=== PATIENT | male | born 1940 | race Caucasian/White ===

== ENCOUNTER → 2017-03-21 | Outpatient (CLI) | payer OTHER, MEDICARE | LOC: MRI 09:16 | DX: G54.2 Cervical root disorders, not elsewhere classified (principal); M25.511 Pain in right shoulder ==

== ENCOUNTER 2017-04-22 06:33 | Day surgery (SDC) | payer OTHER, MEDICARE ==
[~2017-04-22] VITALS: Ht 182.9 cm; Wt 86.2 kg
--- NOTE | ~2017-04-22 | O ---
[facility] [place] [address] OPERATIVE REPORT Name: MICHAEL PUCKETT Room #: 150-8 [facility]..#: [id number] Admission: 04/22/17 Attend Phys: Delvin Sinclair MD Discharge: Date of : 42 Report #: [id number] THIS REPORT FOR: //name// CC: Michael Ibrahim DO Delvin Sinclair DATE OF SERVICE: 04/22/2017 SURGEON: Delvin Sinclair MD PERSONAL CARE HOME ADMINISTRATOR: None. PREOPERATIVE DIAGNOSIS: Bilateral lower lid ectropion. POSTOPERATIVE DIAGNOSIS: Bilateral lower lid ectropion. OPERATION PERFORMED: Bilateral lower lid ectropion repair. ANESTHESIA: Local with IV sedation. COMPLICATIONS: None. INDICATIONS FOR PROCEDURE: This patient has bilateral acquired lower lid ectropion with chronic tearing and discharge. The current procedures are undertaken in order to improve the patient's visual function, lacrimal outflow, and level of comfort. Informed consent was obtained to include but not limit to the risk of loss of vision, bleeding, infection, scarring, failure to improve the problem and need for further surgery. DESCRIPTION OF OPERATION: The patient was taken to the operating room where 2% Xylocaine with epinephrine mixed with equal parts of 0.75% Marcaine with Wydase was administered transcutaneously and transconjunctivally to each lower lid and lateral canthal area. The patient was then prepped and draped in the usual sterile fashion. A Victor Manuel clamp was then used to clamp the left lateral canthus following which a sharp canthotomy and cantholysis were performed. The tarsal strip was prepared laterally, removing the lash bearing portion of the redundant lid margin and the redundant tarsal plate. Hemostasis was achieved with a monopolar cautery, as it was throughout the case. The tarsal strip was then secured to the internal portion of the lateral orbital tubercle with two interrupted 5-0 Prolene sutures. The lateral canthal angle was sharply reformed as the subcutaneous structures and the skin were closed with multiple interrupted 6-0 plain gut sutures. Attention was then turned to the right side where the same procedure was performed. The wounds were cleaned and dressed with ophthalmic antibiotic [address] [address] OPERATIVE REPORT Name: DARINMICHAEL CABRERA Room #: 150-8 [facility].#: [id number] Admission: 04/22/17 Attend Phys: Delvin Sinclair MD Discharge: Date of : 42 Report #: [id number] ointment. The patient was then transported to the recovery area, having tolerated the procedure well with no anesthetic or operative complications being noted. By: [id number] Delvin Sinclair MD /nt
[~2017-04-22 06:33] MED LIST: ALTACE10 MG PO; APAP650 PO; BETA PROSTATE PO; CENTRUM SILVER1 EAC5 PO; COREG6.25 MG PO; CRESTOR20 MG PO; GLUCOPHAGE XR500 MG PO; HYDROCHLOROTHIA25 M2 PO; NORVASC5 MG PO; OSTEO BI-FLEX1 EAC1 PO; PLAVIX 75 MG TA75 M1 PO
[2017-04-22 11:10] VITALS: BP 153/77
== END 2017-04-22 13:40 | disposition home or self-care (01) ==
LOC: MRI → OR 06:33 → TBA 06:33 → OR 10:12
DX: H02.102 Unspecified ectropion of right lower eyelid (principal); H02.105 Unspecified ectropion of left lower eyelid; I21.3 ST elevation (STEMI) myocardial infarction of unspecified site; I10 Essential (primary) hypertension; E78.5 Hyperlipidemia, unspecified; Z87.891 Personal history of nicotine dependence; E11.9 Type 2 diabetes mellitus without complications; K21.9 Gastro-esophageal reflux disease without esophagitis; Z98.890 Other specified postprocedural states
CPT/HCPCS: 50010; 50101; 50386; 50398; 51636; 56527; 56531; 62110; 62850; 70005

== ENCOUNTER 2017-05-20 05:09 | Day surgery (SDC) | payer OTHER, MEDICARE ==
[~2017-05-20] VITALS: Ht 182.9 cm; Wt 87.5 kg
--- NOTE | ~2017-05-20 | O ---
[facility] [place] [address] OPERATIVE REPORT Name: LAVERNMICHAEL Maryana Room #: DEP [facility]..#: [id number] Admission: 05/20/17 Attend Phys: Delvin Sinclair MD Discharge: 05/20/17 Date of : 42 Report #: [id number] THIS REPORT FOR: //name// CC: Michael Han DATE OF SERVICE: 05/20/2017 SURGEON: Delvin Sinclair M.D. BONE DENSITY TECHNICIAN: None. PREOPERATIVE DIAGNOSIS: Bilateral upper lid dermatochalasia with superior visual field defect. POSTOPERATIVE DIAGNOSIS: Bilateral upper lid dermatochalasia with superior visual field defect. OPERATION PERFORMED: Bilateral upper lid functional blepharoplasty. ANESTHESIA: Local with IV sedation. COMPLICATIONS: None. INDICATIONS FOR SURGERY: This patient has acquired upper lid dermatochalasia with superior visual field loss both eyes because of excessive upper lid tissues to include skin and fat. Visual field testing demonstrates dense superior visual defects. Retesting with the upper lid elevated shows an improvement in visual field loss of over 30% and in excess of 12 degrees. The current procedures are undertaken in order to improve the patient's visual function. Informed consent was obtained to include but not limited to the loss of vision, bleeding, infection, scarring, failure to improve the problem and need for further surgery. DESCRIPTION OF OPERATION: The patient was taken to the operating room, where 2% Xylocaine with epinephrine mixed with equal parts of 0.75% Marcaine with Wydase was administered transcutaneously to each upper lid. The patient was then prepped and draped in the usual sterile fashion and a skin-marking pen was then utilized to outline an upper lid crease that was symmetrical on each side. Graefe forceps were then used to quantitate the redundant upper lid skin and it was similarly outlined. The incisions were then made with El scissors and a skin-muscle flap removed from each side with high-temp cautery. Hemostasis was achieved with the monopolar cautery as it was throughout the case. The orbital septum was then identified and the central and medial fat pads were [address] [address] OPERATIVE REPORT Name: MICHAEL PUCKETT Room #: DEP [facility] [facility].#: [id number] Admission: 05/20/17 Attend Phys: Delvin Sinclair MD Discharge: 05/20/17 Date of : 42 Report #: [id number] inspected. The redundant soft tissue was then sculpted with the monopolar cautery. The upper lid crease was then reformed with tightening of the pretarsal orbicularis muscle. The upper lid crease was then further reformed with multiple interrupted 6-0 chromic sutures. The skin was then closed with a running 6-0 plain gut suture. The wound was then cleaned and dressed with ophthalmic antibiotic ointment and a nonstick dressing. The patient was transported to the recovery area, where cold compresses were applied, having tolerated the procedure well with no anesthetic or operative complications being noted. <ELECTRONICALLY SIGNED> By: Delvin Sinclair MD 05/27/17 [id number] Delvin Sinclair MD /nt
[2017-05-20 11:58] LABS: CALCIUM 9.1 mg/dL (8.5-10.1); CREATININE 1.1 mg/dL (0.7-1.3); POTASSIUM 4.1 mmol/L (3.5-5.1)
[2017-05-20 12:34] VITALS: BP 143/69
== END 2017-05-20 14:55 | disposition home or self-care (01) ==
LOC: OR 05:09 → TBA 05:10 → OR 06:33
PROVIDERS: Ophthalmology
DX: H02.834 Dermatochalasis of left upper eyelid (principal); H02.831 Dermatochalasis of right upper eyelid; I10 Essential (primary) hypertension; G47.33 Obstructive sleep apnea (adult) (pediatric); I25.2 Old myocardial infarction; E78.4 Other hyperlipidemia; E11.9 Type 2 diabetes mellitus without complications; K21.9 Gastro-esophageal reflux disease without esophagitis; Z87.828 Personal history of other (healed) physical injury and trauma; Z79.899 Other long term (current) drug therapy; Z87.891 Personal history of nicotine dependence
CPT/HCPCS: 50010; 50101; 50386; 50398; 51606; 51636; 56531; 62110; 62850; 70005